=== PATIENT | female | born 2000 | race Caucasian/White ===

== ENCOUNTER 2024-12-14 23:45 | Emergency (ER) | payer OTHER ==
[2024-12-14 23:51] VITALS: BMI 23.9
[2024-12-15] MEDS: ACETAMINOPHEN 325 MG TABLET (FP) PO ONE (00:48)
[2024-12-15] MEDS ORDERED: ACETAMINOPHEN INJECTION 100 ML ONE (01:13)
[2024-12-15] MEDS ORDERED: DOCUSATE SODIUM 100 MG CAPSULE (FP) PO ONE (01:27)
[2024-12-15] MEDS: SODIUM CHLORIDE 0.9% 500 ML INFUS.BAG IV ONE (01:31)
[2024-12-15] MEDS: ACETAMINOPHEN 1000 MG/100 ML BAG IVPB ONE (01:31)
[2024-12-15] MEDS: DOCUSATE SODIUM 100 MG CAPSULE (FP) PO ONE (01:31)
[2024-12-15 01:34] LABS: ABSOLUTE IMMATURE GRANULOCYTES 0.06 x10^3/uL (0.0-0.031); BASOPHILS # 0.04 x10^3/uL (0.01-0.08); EOSINOPHIL % 1.1 % (0.7-5.8); EOSINOPHILS # 0.14 x10^3/uL (0.04-0.36); MCHC 31.8 g/dl (32.2-35.5); MEAN CELL VOLUME 86.2 fl (79.4-94.8); MEAN PLT VOLUME 9.6 fl (9.4-12.3); MONOCYTE # 0.77 x10^3/uL (0.24-0.86); MONOCYTE % 5.8 % (4.7-12.5); RDW 14.1 % (12.1-16.5)
[2024-12-15 02:00] LABS: CO2 24.0 mmol/L (21-32); GLUCOSE,RANDOM 110.0 mg/dL (74-106)
[2024-12-15 02:03] LABS: CREATININE 0.5 mg/dL (0.55-1.3); SGOT/AST 23.0 U/L (15-37); SGPT/ALT 27.0 U/L (13-61)
[2024-12-15 02:04] LABS: LDH 207.0 U/L (84-246)
[2024-12-15 02:05] LABS: TOT PROT 6.8 g/dl (6.4-8.2)
[2024-12-15 02:06] LABS: ALK PHOS 161.0 U/L (45-117)
[2024-12-15 02:33] LABS: EPI CELLS 13 /uL (0-25.1); HYALINE CASTS 0 /uL (0-3.1); URINE APPEARANCE CLEAR; URINE BACTERIA 414 /uL (0-1359); URINE BILIRUBIN NEGATIVE (NEGATIVE); URINE COLOR YELLOW; URINE GLUCOSE (UA) NEGATIVE (NEGATIVE); URINE KETONE TRACE (NEGATIVE); URINE LEUK ESTERASE TRACE (NEGATIVE); URINE NITRITE NEGATIVE (NEGATIVE); URINE PROTEIN NEGATIVE (NEGATIVE); URINE UROBILINOGEN 2.0 mg/dL (0.2-1.0); URINE WBC 19 /uL (0-25.8)
[2024-12-15] MEDS: CEPHALEXIN MONOHYDRATE 500 MG CAPSULE (UD) PO ONE (02:52)
[2024-12-15] MEDS ORDERED: CEPHALEXIN MONOHYDRATE 500 MG CAPSULE (UD) ONE (02:55)
[2024-12-15 03:57] VITALS: BP 95/62; PULSE 79; RESP 17; TEMP 97.7
== END 2024-12-15 04:08 | disposition home or self-care (01) ==
LOC: JER 23:45
PROC: 3E033NZ Introduction of Analgesics, Hypnotics, Sedatives into Peripheral Vein, Percutaneous Approach (ICD-10-PCS; principal; 2024-12-15)
DX: O99.613 Diseases of the digestive system complicating pregnancy, third trimester (principal); K59.01 Slow transit constipation; R14.0 Abdominal distension (gaseous); O23.93 Unspecified genitourinary tract infection in pregnancy, third trimester; Z3A.30 30 weeks gestation of pregnancy
CPT/HCPCS: 36415; 80053; 81003; 83010; 83615; 83735; 85025; 87086; 93005; 93010; 99284-25